=== PATIENT | female | born 1950 | race Caucasian/White ===

== ENCOUNTER 2023-04-06 12:31 | Outpatient (REF) | payer OTHER, SELFPAY ==
--- NOTE | 2023-04-06 11:05 | SKI_PTH ---
PATIENT: Merry López LOC: [facility] U#:[id number] AGE/SX: 72/F ROOM: RE04/06/[address]: LADARIUS Mauro : 1950 BED: DIS: 04/06/2023 SPEC #: [id number] RECD: 04/06/23 13:18 STATUS: CHRIS REQ #: [id number] LETA: 04/06/23 11:[address]: Diogo Lam DEPT: Surgical Specimen RECD BY: Kaylee Matson ENTERED: 04/06/23 13:19 SP TYPE: JANE JENKINS DR: Francisca Santacruz, [place] Tissues: 1 - SKIN BIOPSY(SHAVE/PUNCH) Procedures: SKIN LEVEL 4 Comments: [id number]
== END 2023-04-06 12:32 | disposition home or self-care (01) ==
LOC: LBN 12:31
PROVIDERS: PCP Registered Nurse; Visit Provider Physician Assistant
DX: C44.319 Basal cell carcinoma of skin of other parts of face (principal)
CPT/HCPCS: 88305